=== PATIENT | female | born 1975 | race Caucasian/White ===

== ENCOUNTER 2019-02-08 19:11 | Emergency (ER) | payer BC ==
[~2019-02-08] VITALS: Ht 160 cm; Wt 71.7 kg
[2019-02-08 19:41] VITALS: BP 105/75; Ht 160 cm; Wt 71.7 kg
== END 2019-02-08 20:58 | disposition left against medical advice (07) ==
LOC: ED 19:11
DX: Z53.21 Procedure and treatment not carried out due to patient leaving prior to being seen by health care provider (principal)